=== PATIENT | male | born 1975 | race Caucasian/White ===

== ENCOUNTER 2018-07-18 11:56 | Emergency (ER) | payer BC ==
[~2018-07-18] VITALS: Ht 167.6 cm; Wt 73.0 kg
[2018-07-18] MEDS ORDERED: ONDANSETRON HCL 4MG/2ML INJ IV STA (12:17)
[2018-07-18] MEDS ORDERED: SODIUM CHLORIDE 0.9% 1,000 ML IV ONE ×2 (12:17→13:16)
[2018-07-18] MEDS ORDERED: MECLIZINE 25MG TABLET PO ONE (12:30)
[2018-07-18] MEDS ORDERED: KETOROLAC 30MG/ML VIAL IV ONE (12:45)
[2018-07-18 13:26] LABS: BASOPHILS % 0.5 % (0.0-2.0); EOSINOPHILS % 0.4 % (0.0-5.0); HEMATOCRIT. 45.2 % (42.0-52.0); HEMOGLOBIN. 15.2 g/dL (14.0-18.0); LYMPHOCYTES % 31.1 % (20.0-50.0); MEAN CORPUSCULAR HEMOGLOBIN 27.5 pg (28.0-32.0); MEAN CORPUSCULAR VOLUME 81.7 fL (80.0-94.0); MEAN PLATELET VOLUME 8.4 fl (7.4-10.4); MONOCYTES % 5.7 % (2.0-8.0); NEUTROPHILS % 62.3 % (40.0-76.0); PLATELET 298 x1000/uL (130-400); RED BLOOD CELL COUNT 5.53 mill/uL (4.7-6.1); RED CELL DISTRIBUTION WIDTH 13.5 % (11.6-14.6)
[2018-07-18 13:29] LABS: CHLORIDE 106 mEq/L (98-107)
[2018-07-18] MEDS ORDERED: METOCLOPRAMIDE HCL 10MG/2ML VIAL IV ONE (13:30)
[2018-07-18 13:37] LABS: PROTHROMBIN TIME 10.3 sec (9.1-11.1)
[2018-07-18 16:25] VITALS: BP 121/76
== END 2018-07-18 16:44 | disposition home or self-care (01) ==
LOC: ER 12:07
DX: R42 Dizziness and giddiness (principal); R11.2 Nausea with vomiting, unspecified; R51 Headache; H55.00 Unspecified nystagmus; R53.1 Weakness; M54.2 Cervicalgia
CPT/HCPCS: 36415; 70450; 80053; 85025; 85610; 96361; 96374; 96375; 99284; J1885; J2405; J2765; J7030; J8597